=== PATIENT | female | born 1985 | race Two or more races ===

== ENCOUNTER 2016-06-25 12:17 | Inpatient (IN) | payer MEDICAID ==
[2016-06-25] MEDS ORDERED: CEFAZOLIN SODIUM 2 GRAM DUPLEX 2 G in Premix (D5W) 50 ml 1 EACH IV PRN (12:29)
[2016-06-25] MEDS ORDERED: IV START KIT ONE (12:38)
[2016-06-25] MEDS ORDERED: SPINAL PROCEDURAL TRAY 1 EACH ONE (12:45)
[2016-06-25] MEDS: LACTATED RINGERS 1,000 ML IV SCH ×3 (12:45→16:27)
[2016-06-25 13:09] LABS: HEMATOCRIT 41.2 % (37.0-47.0); MEAN CELL VOLUME 89.6 fl (81.0-99.0); MEAN CORPUSCULAR HEMOGLOBIN 30.4 pg (27.0-31.0); RED CELL DISTRIBUTION WIDTH 13.1 % (11.5-14.5)
[2016-06-25] MEDS ORDERED: METHYLERGONOVINE MALEATE 0.2 MG/ML 1ML AMP ONE (13:13)
[2016-06-25] MEDS ORDERED: OXYTOCIN 10 UNITS/ML VIAL ONE ×2 (13:13→13:50)
[2016-06-25] MEDS ORDERED: MISOPROSTOL 200 MCG TABLET ONE (13:13)
[2016-06-25] MEDS ORDERED: CARBOPROST TROMETH 250 MCG/ML AMP IM ONE (13:14)
--- NOTE | 2016-06-25 13:17 | PDOC1 ---
- HPI 30 year old at 36-2/7 weeks gestational age by LMP, confirmed with 21- week ultrasound who desires repeat LTCS for means of delivery due to history of prior LTCS. She was seen in clinic earlier today, thought to be in early active labor. She was sent to [facility] for repeat CS. - Problem List (1) Cholestasis during Status: Acute (2) Previous section Status: Acute SOCIAL HISTORY: No Tobacco, alcohol use, or drug use. FAMILY HISTORY: No congenital abnormalities or twins. Home Medications: Ursodiol 300mg TID Hydroxyzine 50mg prn Allergies/Adverse Reactions: Allergies No Known Allergies Allergy (Verified 06/25/16 13:00) - Labs & Studies LABS: Blood Type-O positive, Antibody neg, Rubella Immune, RPR-Negative, HbsAg-Negative, HIV-Negative GC/Chlamydia-Negative, UA-Negative, REVIEW OF DATES: LMP 10/15/15 -> [facility] 07/21/16 Ultrasound on 03/16 @ 21 2/7 WGA -> [facility] 07/25/16 - Review of Systems Ctx started at 7am, some LOF (but no ROM when evaluated in clinic), good FM, no VB - Physical Exam General: Afebrile Psych/Mental Status: Mood/Affect Appropriate, Judgment/Insight Intact Neurological: Grossly Intact, Alert HEENT: Atraumatic, EOMI Lungs: Clear to Auscultation Bilaterally, Normal Air Movement Cardiovascular: Regular Rate and Rhythm, Normal S1, Normal S2, No Murmur Abdomen: Normal Bowel Sounds Extremities: No Edema - Assessment & Plan 22 y/o at 36-2/7 weeks by LMP who will presented in early active labor, plan for repeat LTCS. Discussed with patient the risks of including infection, bleeding possibly requiring blood transfusion and even hysterectomy, damage to underlying structures including bowel, bladder, uterus, tubes, ovaries, baby, and ureter, as well as will have a scar and can have persistent pain and numbness at incision site. The patient agrees to proceed with RLTCS. She has been npo since last night.
[2016-06-25] MEDS ORDERED: CEFAZOLIN SODIUM 2 GRAM DUPLEX 50 ML IV ONE (13:25)
[2016-06-25] MEDS ORDERED: MORPHINE SULFATE (DURAMORPH) 1 MG/ML 10ML AMP ONE (13:47)
[2016-06-25] MEDS ORDERED: ONDANSETRON 4 MG/2ML 2 ML VIAL ONE (14:16)
[2016-06-25] MEDS ORDERED: NALOXONE HCL 0.4 MG/ML VIAL IV PRN (14:44)
[2016-06-25] MEDS ORDERED: EPHEDRINE SULFATE 50 MG/ML 1ML VIAL IV PRN (14:44)
[2016-06-25] MEDS ORDERED: DIPHENHYDRAMINE HCL 50 MG/1 ML VIAL IV PRN (14:44)
[2016-06-25] MEDS ORDERED: HYDROMORPHONE HCL 1 MG/ML SYRINGE IV PRN (14:44)
[2016-06-25] MEDS ORDERED: MORPHINE SULFATE 4 MG/ML SYRINGE IV PRN (14:44)
[2016-06-25] MEDS ORDERED: ONDANSETRON 4 MG/2ML 2 ML VIAL IV PRN (14:44)
[2016-06-25] MEDS ORDERED: MORPHINE SULFATE 10 MG/ML SYRINGE IV PRN (14:44)
[2016-06-25] MEDS ORDERED: PROMETHAZINE HCL 25 MG/ML VIAL IM PRN (14:44)
[2016-06-25] MEDS ORDERED: HYDROMORPHONE HCL 2 MG/ML SYRINGE IV PRN (14:44)
[2016-06-25] MEDS ORDERED: NALBUPHINE HCL 20 MG/ML AMP IV PRN (14:44)
[2016-06-25] MEDS ORDERED: MORPHINE SULFATE 2 MG/ML SYRINGE IV PRN (14:44)
--- NOTE | 2016-06-25 15:13 | PDOC37 ---
Procedure: Repeat Low Transverse Section Date of Procedure: 06/25/16 Preoperative Diagnosis: 1. 36 2/7 week intrauterine . 2. Cholestasis of 3. Active labor 4. Prior LTCS Postoperative Diagnosis: Same Surgeon: Yazan Quach MD Assist: Ifrah Francois MD Indication for Procedure: 30 year old, G P at weeks days who presented in active labor with prior LTCS and h/o cholestasis of . Anesthesia: Spinal with Duramorph Complications: None Estimated Blood Loss: 750 mLs IV Fluids: 1800 mLs of LR Medications: 2 gm of Ancef for routine prophylaxis. 20 units of Pitocin. Urine Output: 350 mLs of clear urine Findings: Fluid clear. Normal uterus, ovaries, and tubes. Procedure: The patient was taken to the operating room where spinal anesthesia was found to be adequate. She was then prepared and draped in the normal sterile fashion in the dorsal supine position with a leftward tilt. A timeout was performed. A Pfannensteil skin incision was then made with the scalpel and carried through to the underlying layer of fascia with the bovie/ scalpel. THe prior incision was removed with scalpal and Nicole clamp. The fascia was incised in the midline and the incision extended laterally with the Cade scissors. The superior aspect of the fascial incision was then grasped with the Ramiro clamps , elevated, and the underlying rectus muscles dissected off bluntly and sharply where needed. Attention was then turned to the inferior aspect of the incision which, in a similar fashion, was grasped, tented up with the Ramiro clamps, and the rectus muscle dissected off bluntly and sharply with Cade scissors. The rectus muscles were then in the midline, and the peritoneum was identified and entered bluntly. The peritoneal incision was then extended with good visualization of the bladder. The Manuel retractor was then placed. The lower uterine segment incised in a transverse fashion with the scalpel. The uterine incision was then extended laterally by pulling superolaterally on both sides. Membranes were ruptured and fluid was clear. The bladder blade was removed the 's head was flexed out of vertex position and delivered atraumatically. The nose and mouth were suctioned with bulb suction and the cord was clamped and cut. The infant was handed off to the waiting staffing recruiter. The placenta was then delivered with gentle cord traction. The uterus was then exteriorized and cleared of all clots and debris. The uterine incision was repaired with 0 vicryl in a running, locked fashion. A second layer of the same suture was used in an imbricating fashion to obtain excellent hemostasis. Four additional sutures were placed in figure eight pattern to further obtain good hemostasis. The gutters were cleared of all clots. The uterus was returned to the abdomen. Good hemostasis was observed. The peritoneum was closed with 3-0 vicryl. The fascia was reapproximated with 0 Vicryl in a running fashion. The skin was closed with ivelisse. The patient tolerated the procedure well. Sponge, lap and needle counts were correct times three. A debriefing was held at the end of the procedure with anesthesia and nursing staff. The patient was taken to the recovery room in stable condition.
[2016-06-25] MEDS ORDERED: HYDROMORPHONE HCL 1 MG/ML SYRINGE ONE (15:33)
[2016-06-25] MEDS ORDERED: LANOLIN 50 APPLIC/7G TUBE TP PRN (16:06)
[2016-06-25] MEDS ORDERED: LACTATED RINGERS 1,000 ML ONE (16:21)
[2016-06-25] MEDS ORDERED: HYDROMORPHONE HCL 1 MG/ML SYRINGE IV ONE (16:42)
[2016-06-25 17:06] VITALS: BMI 20.3
[2016-06-25] MEDS: KETOROLAC TROMETHAMINE 30 MG/ML 1 ML VIAL IV SCH (19:34)
[2016-06-26] MEDS ORDERED: LACTATED RINGERS 1,000 ML ONE ×2 (01:07→03:39)
[2016-06-26] MEDS: LACTATED RINGERS 1,000 ML IV SCH ×2 (01:14→03:43)
[2016-06-26] MEDS: KETOROLAC TROMETHAMINE 30 MG/ML 1 ML VIAL IV SCH ×4 (01:14→10:15)
[2016-06-26] MEDS: DOCUSATE SODIUM 100 MG CAPSULE PO SCH ×3 (05:43→20:29)
[2016-06-26 06:48] LABS: HEMATOCRIT 22.2 % (37.0-47.0); HEMOGLOBIN 7.6 gm/l (12.0-16.0)
[2016-06-26] MEDS: PRENATAL VIT/FE FUMARATE/FA 1 TABLET PO SCH ×2 (07:41→10:15)
--- NOTE | 2016-06-26 08:38 | PDOC44 ---
- Subjective Day: 1 Reports Pain Tolerable, Reports , Reports Lochia Light, Reports Tolerating Clear Liquids, Denies Nausea, Denies Vomiting, Denies Fever - Objective Temp Pulse Resp BP Pulse Ox 98.2 F 88 16 117/64 100 06/26/16 07:35 06/26/16 07:35 06/26/16 07:35 06/26/16 07:35 06/25/16 19:49 Lab Results 06/26/16 06/25/16 06:10 12:45 WBC 6.9 RBC 4.60 Hgb 7.6 L D 14.0 Hct 22.2 L 41.2 Plt Count 159 Current Medications Generic Name Dose Route Start Last Admin Trade Name Freq PRN Reason Stop Dose Admin Diphenhydramine HCl 25 - 50 mg 06/25/16 14:44 06/25/16 16:27 Benadryl IV 06/26/16 14:02 50 mg Q4H PRN Administration Itching Diphenhydramine HCl 25 - 50 mg 06/26/16 14:03 Benadryl PO Q6H PRN Itching (Mild/Moderate) Diphenhydramine HCl 25 - 50 mg 06/26/16 14:03 Benadryl IV Q6H PRN Itching (Severe) Docusate Sodium 100 mg 06/25/16 21:00 06/26/16 05:43 Colace PO Not Given BID DENEEN Emollient Ointment 1 applic 06/25/16 16:06 [id number] TP PRN PRN sore nipples Ephedrine Sulfate 5 - 10 mg 06/25/16 14:44 Ephedrine Sulfate IV 06/26/16 14:02 Q5M PRN Hydromorphone HCl 0.5 - 2 mg 06/25/16 14:44 Dilaudid IV 06/26/16 14:02 Q1H PRN Pain (Breakthrough) Hydromorphone HCl 0.5 - 2 mg 06/25/16 14:44 Dilaudid IV 06/26/16 14:02 Q1H PRN Pain Ibuprofen 800 mg 06/26/16 14:03 Motrin PO Q6H PRN Pain Ketorolac Tromethamine 30 mg 06/25/16 14:44 06/26/16 07:41 Toradol IV 06/26/16 14:02 30 mg Q6H DENEEN Administration Morphine Sulfate 1 - 5 mg 06/25/16 14:44 Morphine Sulfate IV 06/26/16 14:02 Q1H PRN Pain (Breakthrough) Morphine Sulfate 1 - 5 mg 06/25/16 14:44 Morphine Sulfate IV 06/26/16 14:02 Q1H PRN Pain (Breakthrough) Morphine Sulfate 1 - 5 mg 06/25/16 14:44 Morphine Sulfate IV 06/26/16 14:02 Q1H PRN Pain (Breakthrough) Multivi/Iron Carb/Fe Sulf/FA/Prenat 1 tab 06/26/16 09:00 06/26/16 07:41 Plus PO 1 tab DAILY DENEEN Administration Nalbuphine HCl 1 - 5 mg 06/25/16 14:44 Nubain IV 06/26/16 14:02 Q4H PRN Itching Naloxone HCl 0.2 - 0.4 mg 06/25/16 14:44 Narcan IV 06/26/16 14:02 Q5M PRN Ondansetron HCl 4 mg 06/25/16 14:44 Zofran IV 06/26/16 14:02 Q6H PRN Nausea/Vomiting Oxycodone/Acetaminophen 1 - 2 tab 06/25/16 16:06 Percocet 5/325 PO Q4H PRN Pain (Moderate) Promethazine HCl 6.25 - 12.5 mg 06/25/16 14:44 Phenergan IM 06/26/16 14:02 Q4H PRN Nausea/Vomiting Sodium Chloride 10 ml 06/25/16 16:06 06/26/16 07:41 Normal Saline 10ml Flush IV 10 ml PRN PRN Administration IV Flush Sodium Chloride 10 ml 06/25/16 17:00 06/26/16 07:41 Normal Saline 10ml Flush IV 10 ml Q8HR DENEEN Administration - Physical Exam General: Afebrile, No Acute Distress Psych/Mental Status: Mood/Affect Appropriate, Bonding Well Neurological: Alert, Oriented x 4 Lungs: Clear to Auscultation Bilaterally Cardiovascular: Regular Rate and Rhythm Breast: Nipples Intact Fundus: Firm, Midline Extremities: Full ROM, No Edema, No Tenderness Skin: Normal Color, Warm, Dry, Intact, No Rash Wound ELECTRICIAN OUTSIDE: Dressing Clean/Dry/Intact, Well Approximated - Problems:Assessment/Plan (1) Cholestasis during Status: AcuteAssessment/Plan: S/p delivery. Asymptomatic now. (2) Anemia due to acute blood loss Status: AcuteAssessment/Plan: Start ferrous sulfate. (3) delivery, delivered, current hospitalization Status: AcuteAssessment/Plan: POD1 rLTCS Routine PP care. Support BF. Start iron supplements
[2016-06-26] MEDS: IBUPROFEN 800 MG TABLET PO PRN ×2 (13:47→20:29)
[2016-06-26] MEDS ORDERED: DIPHENHYDRAMINE HCL 25 MG CAPSULE PO PRN (14:03)
[2016-06-26] MEDS ORDERED: DIPHENHYDRAMINE HCL 50 MG/1 ML VIAL IV PRN (14:03)
[2016-06-26] MEDS: OXYCODONE/ACETAMINOPHEN 5/325 MG TABLET PO PRN (20:28)
[2016-06-26] MEDS: FERROUS SULFATE (65 Fe) 325 MG TABLET PO SCH (20:29)
[2016-06-26] MEDS ORDERED: SIMETHICONE 80 MG TAB.CHEW PO PRN (22:42)
[2016-06-27] MEDS: OXYCODONE/ACETAMINOPHEN 5/325 MG TABLET PO PRN ×5 (00:37→23:59)
[2016-06-27] MEDS: IBUPROFEN 800 MG TABLET PO PRN ×4 (03:01→23:59)
[2016-06-27] MEDS: PRENATAL VIT/FE FUMARATE/FA 1 TABLET PO SCH (10:52)
[2016-06-27] MEDS: FERROUS SULFATE (65 Fe) 325 MG TABLET PO SCH ×2 (10:52→21:03)
[2016-06-27] MEDS: DOCUSATE SODIUM 100 MG CAPSULE PO SCH ×2 (10:52→21:03)
--- NOTE | 2016-06-27 16:01 | PDOC44 ---
- Subjective Day: 2 Reports Flatus, Reports Pain Tolerable, Reports , Reports Lochia Light, Reports Tolerating Regular Diet, Denies Nausea, Denies Vomiting - Objective Temp Pulse Resp BP Pulse Ox 98.6 F 88 18 119/71 100 06/27/16 08:45 06/27/16 08:45 06/27/16 08:45 06/27/16 08:45 06/25/16 19:49 Current Medications Generic Name Dose Route Start Last Admin Trade Name Freq PRN Reason Stop Dose Admin Diphenhydramine HCl 25 - 50 mg 06/26/16 14:03 Benadryl PO Q6H PRN Itching (Mild/Moderate) Diphenhydramine HCl 25 - 50 mg 06/26/16 14:03 Benadryl IV Q6H PRN Itching (Severe) Docusate Sodium 100 mg 06/25/16 21:00 06/26/16 20:29 Colace PO 100 mg BID DENEEN Administration Emollient Ointment 1 applic 06/25/16 16:06 [id number] TP PRN PRN sore nipples Ferrous Sulfate 325 mg 06/26/16 21:00 06/26/16 20:29 Ferrous Sulfate PO 325 mg BID DENEEN Administration Ibuprofen 800 mg 06/26/16 14:03 06/27/16 03:01 Motrin PO 800 mg Q6H PRN Administration Pain Multivi/Iron Carb/Fe Sulf/FA/Prenat 1 tab 06/26/16 09:00 06/26/16 10:15 Plus PO Not Given DAILY DENEEN Oxycodone/Acetaminophen 1 - 2 tab 06/25/16 16:06 06/27/16 05:48 Percocet 5/325 PO 2 tab Q4H PRN Administration Pain (Moderate) Simethicone 160 mg 06/26/16 22:42 06/26/16 22:50 Mylicon PO 160 mg TID PRN Administration Gas - Physical Exam General: Afebrile, No Acute Distress Psych/Mental Status: Mood/Affect Appropriate, Bonding Well Neurological: Alert, Oriented x 4 Lungs: Clear to Auscultation Bilaterally Cardiovascular: Regular Rate and Rhythm Breast: Nipples Intact Fundus: Firm, Midline Extremities: Full ROM, No Edema, No Tenderness Skin: Normal Color, Warm, Dry, Intact, No Rash Wound DIEING OUT MACHINE OPERATOR: Dressing Clean/Dry/Intact, Well Approximated - Problems:Assessment/Plan (1) delivery, delivered, current hospitalization Status: AcuteAssessment/Plan: POD2 rLTCS. Nl exam and vitals. Routine PP care. Support BF. (2) Anemia due to acute blood loss Status: AcuteAssessment/Plan: Started ferrous sulfate. Asymptomatic. Disposition: Anticipate DC Home Tomorrow
[2016-06-28] MEDS: IBUPROFEN 800 MG TABLET PO PRN ×2 (05:55→11:26)
[2016-06-28] MEDS: OXYCODONE/ACETAMINOPHEN 5/325 MG TABLET PO PRN ×2 (05:55→10:40)
--- NOTE | 2016-06-28 08:35 | PDOC39B ---
Hospital Course: ADMIT DATE: 06/25/16 DISCHARGE DATE: 06/28/16 ADMISSION DIAGNOSES: Active labor @ 36 2/7 wks PROCEDURES: Repeat Cesarian Section HISTORY OF PRESENT ILLNESS/HOSPITAL COURSE: 30 year old G2 T1 L1 at 36 weeks 2 days with history of cesarian section x 1 presented in active labor and was taken for a repeat Cesarian Section. By day of discharge the patient is ambulating, eating, voiding, and passing flatus without difficulty. Pain is controlled and lochia is appropriate. She is . - Physical Exam Vital Signs: Temp Pulse Resp BP Pulse Ox 98.4 F 105 18 125/75 100 06/28/16 03:04 06/28/16 03:04 06/28/16 03:04 06/28/16 03:04 06/25/16 19:49 General: Afebrile, No Acute Distress Neurological: Alert, Oriented x 4 Lungs: Clear to Auscultation Bilaterally Cardiovascular: Regular Rate and Rhythm Fundus: Firm, Midline Extremities: Full ROM, No Edema Skin: Normal Color, Warm, Dry, Intact, No Rash Wound: Dressing Clean/Dry/Intact, Well Approximated - Discharge Diagnosis (1) delivery, delivered, current hospitalization Status: AcuteAssessment/Plan: POD3 rLTCS. Nl exam and vitals. BF and supplementing with formula as well. (2) Anemia due to acute blood loss Status: AcuteAssessment/Plan: Started ferrous sulfate. Asymptomatic. - Discharge Plan Condition: Good Disposition: Home Prescriptions: Docusate Sodium [COLACE 100 MG CAPSULE (SHF)] 100 mg PO BID PRN #60 cap PRN Reason: Constipation Ibuprofen [Motrin] 800 mg PO TID PRN #30 tablet PRN Reason: Pain FERROUS SULFATE (65 Fe) [IRON FERROUS SULFATE 325 MG TABLET (SHF)] 325 mg PO BID #60 tab Oxycodone HCl/Acetaminophen [PERCOCET 5/325 MG TABLET (SHF)] 1 tab PO Q4-6H PRN #20 tab PRN Reason: Severe Pain Follow-Up: Yazan Quach MD [Staff Physician] - In 2 weeks
[2016-06-28 09:08] VITALS: BP 114/72
[2016-06-28] MEDS ORDERED: LIDOCAINE 1% (PRES FREE) 30 ML VIAL ONE (10:35)
== END 2016-06-28 11:50 | disposition home or self-care (01) | DRG 765 ==
LOC: FBC 12:17 → EDSTATUS 07-21 10:57
PROVIDERS: ADMIT Family Medicine; ATTEND Family Medicine
PROC: 10D00Z1 Extraction of Products of Conception, Low, Open Approach (ICD-10-PCS; principal; 2016-06-25)
DX: O26.62 Liver and biliary tract disorders in childbirth (principal); K83.1 Obstruction of bile duct; D62 Acute posthemorrhagic anemia; O34.211 Maternal care for low transverse scar from previous cesarean delivery; N85.8 Other specified noninflammatory disorders of uterus; Z37.0 Single live birth; O90.81 Anemia of the puerperium; Z3A.36 36 weeks gestation of pregnancy